=== PATIENT | male | born 1965 | race Caucasian/White ===

== ENCOUNTER → 2022-03-11 09:24 | Outpatient (BNVA) | payer OTHER, SELFPAY | PROVIDERS: PCP Internal Medicine; Visit Provider Surgery | DX: L72.3 Sebaceous cyst (principal); L08.9 Local infection of the skin and subcutaneous tissue, unspecified | CPT/HCPCS: 99202 ==

== ENCOUNTER 2022-04-15 07:11 | Outpatient (REF) | payer OTHER, SELFPAY ==
[2022-04-15 07:30] VITALS: BP 140/83; PULSE 70; RESP 16; TEMP 37; O2SAT 70
[2022-04-15 07:37] VITALS: BMI 32.4
[2022-04-15 08:19] VITALS: BP 114/66; PULSE 68; RESP 16; O2SAT 97
--- NOTE | 2022-04-15 08:20 | P.OP_ITS ---
Operative Note Operative Note Date of Service: 04/15/22 Narrative: Preoperative diagnosis: Sebaceous cyst left scalp Postoperative diagnosis: Same Procedure: Excision of sebaceous cyst left scalp Surgeon: Charles Gerard MD Abrasive Grader Helper: ANGELY Stanley Anesthesia: Local lidocaine 2% with epinephrine Indications for procedure: 57-year-old male patient presenting with a sebaceous cyst over the left ear which has become infected multiple times in the same location. He has requested excision. Operative findings: Sebaceous cyst measuring approximately 1.5 cm in diameter. No evidence of abscess at this time. Specimen: Sebaceous cyst left scalp Estimated blood loss: 2 mL Complications: None Procedure details: Patient was brought to the minor surgery suite and placed in a right lateral decubitus position. The site of surgery was confirmed by the patient in the left scalp. After assuring informed consent the scalp was prepped with Betadine and draped in a sterile fashion. Local anesthesia was then infiltrated surrounding the cyst. An elliptical incision oriented transversely was then created using a 15 blade. This carried out through subcutaneous tissue and around the cyst wall. The cyst was completely excised and passed off the table. This was sent to pathology for further examination. Hemostasis was assured using suture ligature of 3-0 Polysorb suture. Skin was then closed using interrupted 4-0 nylon sutures. Wounds were then dressed with bacitracin followed by a sterile bandage. The patient tolerated the procedure well. He was discharged to home in stable condition.
== END 2022-04-15 07:12 | disposition home or self-care (01) ==
LOC: HO.MS 07:11
PROVIDERS: PCP Internal Medicine; Visit Provider Surgery
PROC: (CPT 11422; principal; 2022-04-15 08:00)
DX: L72.3 Sebaceous cyst (principal)
CPT/HCPCS: 11422; 88304

== ENCOUNTER 2023-06-17 08:08 | Outpatient (REF) | payer OTHER, SELFPAY ==
[2023-06-17 11:34] LABS: Cholesterol 206 mg/dL (<200); HDL Cholesterol 37 mg/dL (>40); LDL Cholesterol Calculated 104 mg/dL (<100); Triglycerides 326 mg/dL (<150)
[2023-06-17 11:50] LABS: Anion Gap 17 (12-20); Blood Urea Nitrogen 13 mg/dL (9-16); Calcium 9.5 mg/dL (8.4-10.2); Carbon Dioxide 26 mmol/L (22-29); Chloride 103 mmol/L (96-108); Estimated Glomerular Filt Rate > 60; Glucose Random 198 mg/dL (60-115); Potassium 4.5 mmol/L (3.3-5.1); Sodium 141 mmol/L (135-145)
[2023-06-17 11:54] LABS: Reflex LDLD? No
[2023-06-17 12:08] LABS: Microalbum/Creatinine Ratio Ur 12.3 ug/mg cr (<30)
== END 2023-06-17 08:09 | disposition home or self-care (01) ==
LOC: HO.HHCL 08:08
PROVIDERS: Visit Provider Internal Medicine
DX: I10 Essential (primary) hypertension (principal); E11.9 Type 2 diabetes mellitus without complications
CPT/HCPCS: 36415; 80048; 80061; 82043; 82570

== ENCOUNTER 2024-05-24 08:02 | Outpatient (REF) | payer OTHER, SELFPAY ==
[2024-05-24 11:39] LABS: Alanine Aminotransferase 24 U/L (0-40); Albumin Level 4.1 g/dL (3.5-5.0); Anion Gap 12 (12-20); Aspartate Amino Transferase 23 U/L (5-37); Bilirubin Total 0.3 mg/dL (0.0-1.0); Blood Urea Nitrogen 11 mg/dL (9-16); Calcium 9.4 mg/dL (8.4-10.2); Carbon Dioxide 26 mmol/L (22-29); Chloride 106 mmol/L (96-108); Cholesterol 146 mg/dL (<200); Estimated Glomerular Filt Rate > 60; Glucose Random 145 mg/dL (60-115); HDL Cholesterol 41 mg/dL (>40); LDL Cholesterol Calculated 79 mg/dL (<100); Sodium 140 mmol/L (135-145); Total Protein 7.2 g/dL (6.5-8.0); Triglycerides 130 mg/dL (<150)
[2024-05-24 11:56] LABS: Alkaline Phosphatase 92 U/L (39-117)
[2024-05-24 12:02] LABS: Prostate Specific Antigen Scr 0.54 ng/mL (<0.05-4.0)
== END 2024-05-24 08:03 | disposition home or self-care (01) ==
LOC: HO.HHCL 08:02
PROVIDERS: Visit Provider Internal Medicine
DX: Z00.00 Encounter for general adult medical examination without abnormal findings (principal); Z12.5 Encounter for screening for malignant neoplasm of prostate; I10 Essential (primary) hypertension; E78.2 Mixed hyperlipidemia
CPT/HCPCS: 36415; 80053; 80061; 84153